=== PATIENT | male | born 1960 | race Caucasian/White ===

== ENCOUNTER 2018-06-04 07:47 | Day surgery (SDC) | payer OTHER ==
[2018-06-04] MEDS ORDERED: PROPOFOL 60 ML (09:53)
[2018-06-04] MEDS ORDERED: LIDOCAINE 2% (SDV) 5 ML INJ (09:53)
[2018-06-04] MEDS ORDERED: PROPOFOL 20 ML (09:54)
[2018-06-04] MEDS ORDERED: ONDANSETRON 4 MG INJ IV (10:00)
[2018-06-04] MEDS ORDERED: FENTAnyl 50 MCG/ML VIAL IV ×2 (10:00)
[2018-06-04] MEDS ORDERED: LABETALOL HCL 20MG INJ IV (10:00)
[2018-06-04] MEDS ORDERED: hydrALAzine 20 MG INJ IV (10:00)
[2018-06-04] MEDS ORDERED: EPHEDrine SULFATE 50 MG/5 ML SYG IV (10:00)
== END 2018-06-04 12:17 | disposition home or self-care (01) ==
LOC: GIL 07:47
DX: Z12.11 Encounter for screening for malignant neoplasm of colon (principal); D12.0 Benign neoplasm of cecum; K64.8 Other hemorrhoids; I10 Essential (primary) hypertension
CPT/HCPCS: 45380; 88305